=== PATIENT | male | born 1970 | race Caucasian/White ===

== ENCOUNTER 2024-07-30 06:20 | Day surgery (SDC) | payer BC, SELFPAY ==
--- NOTE | 2024-07-29 07:33 | PTCARENOTE ---
ECG tracing unavailable, ECG report provided by surgeons office- reviewed by Dr. Dueñas- no further actions required
[2024-07-30] VITALS (17 sets, daily range): BP systolic 112–171; BP diastolic 65–93; PULSE 94; O2SAT 97; BMI 32.9
[2024-07-30] MEDS: NORMOSOL-R/PLASMALYTE-A 1000 IV ×3 (07:58→20:29)
[2024-07-30] MEDS: TYLENOL 1000 MG PO (07:59)
[2024-07-30] MEDS: SKELAXIN 800 MG PO (07:59)
[2024-07-30] MEDS: CELEBREX 200 MG PO (07:59)
[2024-07-30] MEDS: LYRICA 150 MG PO (07:59)
[2024-07-30] MEDS: DILAUDID 0.25 MG IV ×2 (11:35→11:55)
--- NOTE | 2024-07-30 12:58 | W.PN.ORTHO ---
Today's Communication / Plan
-
D/c when clinically stable
Assessment
.
Distal Motor Intact: Yes
Dressing:
Clean, dry and intact.
Assessment:
Lumbar stenosis s/p L L5-S1 Hemilaminectomy/PSF w/ Dr Landry 07/30/24
- s/p R L5-S1 hemilaminectomy and contralateral decompression w/ Dr Landry 06/2021
DVT prophylaxis - b/l SCDs/TEDs
HTN - diet controlled - monitor BP
GERD - continue PPI HS
Hyperlipidemia
Colon polyps
Nephrolithiasis
Depression
Anxiety
Obesity, BMI 32.9
The patient will use a back brace post-op
Plan
.
Surgery / Date: L L5-S1 Hemilaminectomy/PSF w/ Dr Landry 07/30/24
DVT Prophylaxis: Other (b/l SCDs/TEDs)
Activity:
Out of bed.
PT/OT
Discharge Plan: Home
Subjective
.
.:
Patient examined resting in PACU.
Low back pain present but is 'tolerable for now'.
Denies any new significant complaints.
Vital Signs and Labs
.
Vital Signs and Labs:
Temp Pulse Resp BP Pulse Ox
98.4 F 75 16 126/71 98
07/30/24 07:28 07/30/24 07:28 07/30/24 07:28 07/30/24 07:28 07/30/24 07:28
Physical Exam
-
HEENT: No pallor, cyanosis, or jaundice. Throat clear.
NECK: Supple. No JVD.
RESPIRATORY: Lungs clear to auscultation.
CVS: S1, S2 normal. RRR.�
ABDOMEN: Soft, non-tender. No distension. Obese.
EXTREMITIES: Strength equal, no calf pain with palpation/dorsiflexion. Calves soft.
MEDICAL RECORDS SECRETARY: AOx3. No focal deficits. outdoor fitness trainer grossly intact
[2024-07-30] MEDS: NORCO 5/325 2 TABLET PO ×2 (13:21→20:20)
--- NOTE | 2024-07-30 14:53 | PTCARENOTE ---
Patient admitted from Pacu post L5-S1 shelbie laminectomy with PSF.The patient reports his pain at a 3-4 out of 10.Neurovascular assessment is within normal limits and ongoing.Vital signs are stable.The dressing in the back is clean and intact without
drainage.The patient is in his bed with the call guillen in reach.
[2024-07-30] MEDS: ANCEF 5 IV (16:38)
[2024-07-30] MEDS: LIPITOR 10 MG PO (17:19)
[2024-07-30] MEDS: SENOKOT 17.2 MG PO (20:08)
[2024-07-30] MEDS: LYRICA 75 MG PO (20:08)
[2024-07-30] MEDS: COLACE 100 MG PO (20:08)
[2024-07-30] MEDS: ZOLOFT 100 MG PO (21:29)
[2024-07-30] MEDS: PROTONIX 40 MG PO (21:29)
[2024-07-31] MEDS: ANCEF 5 IV (00:09)
[2024-07-31] MEDS: NORCO 5/325 2 TABLET PO (00:26)
[2024-07-31 03:20] VITALS: BP 117/64
[2024-07-31] MEDS: NORMOSOL-R/PLASMALYTE-A 1000 IV (04:22)
[2024-07-31] MEDS: NORCO 5/325 1 TABLET PO (04:23)
[2024-07-31 05:50] LABS: Hematocrit 35.7 % (39.0-52.0); Hemoglobin 12.4 g/dL (13.0-18.0)
[2024-07-31 06:32] LABS: Blood Urea Nitrogen 12 mg/dl (9-20); Calcium 8.7 mg/dl (8.4-10.2); Carbon Dioxide 24 mmol/L (22-30); Chloride 103 mmol/L (98-107); Estimated Creatinine Clearance 123 ml/min; Glucose 108 mg/dl (70-99); Potassium 4.4 mmol/L (3.5-5.1); Sodium 141 mmol/L (135-145); eGFR > 60.00
[2024-07-31 07:10] VITALS: BP 114/64
--- NOTE | 2024-07-31 07:53 | W.DS.TRANS ---
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
-
Discharge Instructions:
Sleep Apnea Risk Intermediate
Discharge Diagnosis/Procedures Lumbar stenosis s/p left L5-S1 hemilaminectomy/
posterior fusion w/ [facility] 07/30/24
Diet Regular
Activity As tolerated
Additional Activity No heavy lifting >10 lbs
Driving Restrictions Not until seen by your Dr
Bathing Restrictions OK to shower in 4 days
Instructions:
Stand-Alone Forms: [facility] Lumbar D/C Inst.
Changes to Home Medications: No
Discharge Medications:
DC Medications w/original date entered in [employer]
acetaminophen 500 mg tablet (Tylenol Extra Strength) 1,000 mg PO Q6HPRN PRN pain 06/21/21
ibuprofen 200 mg capsule (Advil Liqui-Gel) 400 mg PO Q8HPRN PRN pain 06/21/21
omeprazole 20 mg capsule,delayed release 20 mg PO HS 06/21/21
simvastatin 20 mg tablet 20 mg PO QPM 06/21/21
sertraline 100 mg tablet (Zoloft) 100 mg PO HS 07/29/24
Home Medication Changes
Pending Results: No
--- NOTE | 2024-07-31 07:53 | W.PN.SP ---
Today's Communication / Plan
-
D/c today post PT
Assessment / Plan
-
NEuro stable
Subjective / Objective
Subjective Data
Doing well
Pain is better in legs
Back is sore
Denies new weakness
NEuro stable
PT
D/c today
Objective Data
Vital Signs
Temp Pulse Resp BP Pulse Ox
97.8 F 68 20 117/64 97
07/31/24 03:20 07/31/24 03:20 07/31/24 03:20 07/31/24 03:20 07/31/24 03:20
Intake and Output
07/30/24 07/31/24 08/01/24
06:59 06:59 06:59
Intake Total 1420 / 1420
Output Total 450 / 450
Balance 970 / 970
Intake:
Oral fluids 720 / 720
IV fluids (Total) 700 / 700
Normosol 300 / 300
Output:
Urine, Voided 450 / 450
Other:
Number of approximated MODERATE 2
amounts of urine
Lab Data
07/31/24 04:54
07/31/24 04:54
[2024-07-31] MEDS: SENOKOT 17.2 MG PO (08:15)
[2024-07-31] MEDS: LYRICA 75 MG PO (08:15)
[2024-07-31] MEDS: COLACE 100 MG PO (08:15)
[2024-07-31 09:12] VITALS: BP 150/71; PULSE 83
--- NOTE | 2024-07-31 09:39 | CM ---
Patient met at bedside.
IA Completed, case management consult completed.
Dx: lumbar stenosis s/p L5-S1 Hemilaminectomy 07/30
Lives at home with , daughter & grandson in a 1 story home, 2 steps to enter
No DME
Denies previous HH or Rehab
PLOF: Independent, employed
Denies any housing/transportation/utilities/food insecurities
No needs anticipated
PCP: [facility]
Pharmacy: [facility]
PLAN: Home, no needs
--- NOTE | 2024-07-31 10:08 | W.PN.ORTHO ---
Today's Communication / Plan
-
D/c today since clinically stable, labs WNL. Did well w/ PT and OT.
Assessment
.
Distal Motor Intact: Yes
Dressing:
Clean, dry and intact.
Assessment:
Lumbar stenosis s/p L L5-S1 Hemilaminectomy/PSF w/ Dr Landry 07/30/24
- s/p R L5-S1 hemilaminectomy and contralateral decompression w/ Dr Landry 06/2021
DVT prophylaxis - b/l SCDs/TEDs
HTN - diet controlled - BPs stable
GERD - continue PPI HS
Hyperlipidemia
Colon polyps
Nephrolithiasis
Depression
Anxiety
Obesity, BMI 32.9
The patient will use a back brace post-op
Plan
.
Surgery / Date: L L5-S1 Hemilaminectomy/PSF w/ Dr Landry 07/30/24
DVT Prophylaxis: Other (b/l SCDs/TEDs)
Activity:
Out of bed.
PT/OT
Discharge Plan: Home
Subjective
.
.:
Patient resting comfortably in his chair.
Low back pain tolerable w/ current pain meds.
Denies any new significant complaints.
Eager for potential d/c today.
Vital Signs and Labs
.
Vital Signs and Labs:
Lab Results
07/31/24 04:54
07/31/24 04:54
Temp Pulse Resp BP Pulse Ox
98.5 F 77 20 114/64 98
07/31/24 07:10 07/31/24 07:10 07/31/24 07:10 07/31/24 07:10 07/31/24 07:10
Physical Exam
-
HEENT: No pallor, cyanosis, or jaundice. Throat clear.
NECK: Supple. No JVD.
RESPIRATORY: Lungs clear to auscultation.
CVS: S1, S2 normal. RRR.�
ABDOMEN: Soft, non-tender. No distension. Obese.
EXTREMITIES: Strength equal, no calf pain with palpation/dorsiflexion. Calves soft.
PHARMACY AFFAIRS ASSISTANT: AOx3. No focal deficits. milk powder grinder grossly intact
--- NOTE | 2024-07-31 10:18 | W.DS.TRANS ---
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
-
Discharge Instructions:
Sleep Apnea Risk Intermediate
Discharge Diagnosis/Procedures Lumbar stenosis s/p left L5-S1 hemilaminectomy/
posterior fusion w/ [facility] 07/30/24
Diet Regular
Activity As tolerated
Additional Activity No heavy lifting >10 lbs
Driving Restrictions Not until seen by your Dr
Bathing Restrictions OK to shower in 4 days
Instructions:
Stand-Alone Forms: [facility] Lumbar D/C Inst.
Changes to Home Medications: Yes
Discharge Medications:
DC Medications w/original date entered in [employer]
omeprazole 20 mg capsule,delayed release 20 mg PO HS 06/21/21
simvastatin 20 mg tablet 20 mg PO QPM 06/21/21
sertraline 100 mg tablet (Zoloft) 100 mg PO HS 07/29/24
Saccharomyces boulardii 250 mg capsule (Florastor) 250 mg PO BID #10 caps 07/31/24
acetaminophen 325 mg tablet 650 mg (2 x 325 mg) PO Q6H PRN mild pain #60 tabs 07/31/24
cephalexin 500 mg capsule 500 mg PO QID #20 caps 07/31/24
docusate sodium 100 mg capsule 100 mg PO BID #30 caps 07/31/24
hydrocodone 5 mg-acetaminophen 325 mg tablet 1 - 2 tab PO Q6H PRN moderate-severe pain #30 tabs 07/31/24
ondansetron HCl 4 mg tablet 4 mg PO Q6H PRN nausea and vomiting #30 tabs 07/31/24
pregabalin 75 mg capsule 75 mg PO BID neuropathic pain #15 caps 07/31/24
sennosides 8.6 mg tablet (Senna Laxative) 17.2 mg (2 x 8.6 mg) PO BID #30 tabs 07/31/24
Home Medication Changes
Saccharomyces boulardii 250 mg capsule (Florastor) 250 mg PO BID #10 caps 07/31/24
acetaminophen 325 mg tablet 650 mg (2 x 325 mg) PO Q6H PRN mild pain #60 tabs 07/31/24
cephalexin 500 mg capsule 500 mg PO QID #20 caps 07/31/24
docusate sodium 100 mg capsule 100 mg PO BID #30 caps 07/31/24
hydrocodone 5 mg-acetaminophen 325 mg tablet 1 - 2 tab PO Q6H PRN moderate-severe pain #30 tabs 07/31/24
ondansetron HCl 4 mg tablet 4 mg PO Q6H PRN nausea and vomiting #30 tabs 07/31/24
pregabalin 75 mg capsule 75 mg PO BID neuropathic pain #15 caps 07/31/24
sennosides 8.6 mg tablet (Senna Laxative) 17.2 mg (2 x 8.6 mg) PO BID #30 tabs 07/31/24
Pending Results: No
== END 2024-07-31 10:56 | disposition home or self-care (01) ==
LOC: SDS 06:20
PROVIDERS: Physician Assistant; ATTENDING PHYSICIAN Orthopaedic Surgery Orthopaedic Surgery of the Spine
DX: M48.062 Spinal stenosis, lumbar region with neurogenic claudication (principal); M43.17 Spondylolisthesis, lumbosacral region
CPT/HCPCS: 22612; 63047; 22840; 20930; 72100; 76000; 80048; 85014; 85018; 87070; 97116; 97162; 97166; 97530; 97535; C1713; C1776